=== PATIENT | female | born 1990 | race Caucasian/White ===

== ENCOUNTER 2016-12-09 06:36 | Emergency (ER) | payer BC ==
[2016-12-09 06:51] VITALS: O2SAT 96
[2016-12-09 07:37] LABS: ADD URINE CULTURE? YES (NO); Bacteria MODERATE /HPF (NEGATIVE); Bilirubin NEGATIVE (NEGATIVE); Blood 250 Ery/ul (0-5); COMPLETE URINE MICROSCOPIC? YES; Collection Type CCMS; Epithelial Cells MODERATE /HPF (FEW); Glucose NEGATIVE (NEGATIVE); Leukocyte Esterase NEGATIVE (NEGATIVE)
--- NOTE | 2016-12-09 07:44 | ERPHSYRPT ---
- History of Present Illness Time Seen by Provider: 12/09/16 07:00 Historian: patient Exam Limitations: no limitations Patient Subjective Stated Complaint: Pt sts intermittent left flank pain x 1 week. Sts a few days ago left flank hurt, sts last night right flank started hurting. Sts she feels like she has a kidney infection. Has been taking AZO for this. Pt sts painful urination. Denies urinary frequency. Sts intermittent urinary urgency. Triage Nursing Assessment: Pt alert, oriented, answers all questions appropriately. Skin p/w/d, resps non-labored. Pt ambulatory to tx room, steady gait noted. Timing/Duration: week(s) (1) Activities at Onset: none Quality: sharpness Abdominal Pain Onset Location: flank (oracio, but L>R) Pain Radiation: no radiation Severity of Pain-Max: moderate Severity of Pain-Current: moderate Modifying Factors: Improves With: urinating Associated Symptoms: denies symptoms Previous symptoms: same symptoms as today Allergies/Adverse Reactions: morphine Allergy (Intermediate, Verified 12/09/16 06:46) Vomiting Immunizations Up to Date: Yes - Review of Systems Constitutional: No Symptoms Eyes: No Symptoms Ears, Nose, & Throat: No Symptoms Respiratory: No Symptoms Cardiac: No Symptoms Abdominal/Gastrointestinal: No Symptoms Genitourinary Symptoms: Dysuria Musculoskeletal: No Symptoms Skin: No Symptoms Neurological: No Symptoms Psychological: No Symptoms Endocrine: No Symptoms Hematologic/Lymphatic: No Symptoms Immunological/Allergic: No Symptoms - Past Medical History Pertinent Past Medical History: No - Past Surgical History Past Surgical History: Yes Gastrointestinal: Appendectomy Female Surgical History: Section - Social History Smoking Status: Never smoker Exposure to second hand smoke: No Drug Use: none Patient Lives Alone: No - Female History Hx Last Menstrual Period: now - Nursing Vital Signs Nursing Vital Signs: Initial Vital Signs Temperature 98.0 F 12/09/16 06:46 Pulse Rate 76 12/09/16 06:46 Respiratory Rate 16 12/09/16 06:46 Blood Pressure 128/78 12/09/16 06:46 O2 Sat by Pulse Oximetry 96 12/09/16 06:46 Pain Scale Pain Intensity 8 - Physical Exam General Appearance: moderate distress Eye Exam: eyes nml inspection Ears, Nose, Throat Exam: normal ENT inspection, TMs normal, pharynx normal Neck Exam: normal inspection, non-tender, supple, full range of motion Respiratory Exam: normal breath sounds, lungs clear, airway intact Cardiovascular Exam: regular rate/rhythm, normal heart sounds, normal peripheral pulses Gastrointestinal/Abdomen Exam: soft, normal bowel sounds Extremity Exam: normal inspection, normal range of motion, pelvis stable Neurologic Exam: alert, oriented x 3, cooperative Skin Exam: normal color, warm, dry SpO2 Interpretation: normal SpO2: 96 Oxygen Delivery: Room Air - Course Nursing assessment & vital signs reviewed: Yes Ordered Tests: Active Orders 24 hr Category Date Time Status Clean Catch Urine Specimen STAT Care 12/09/16 07:04 Active CULTURE,URINE Stat Lab 12/09/16 07:15 Received UA W/ MICROSCOPIC Stat Lab 12/09/16 07:15 Completed Lab/Rad Data: Laboratory Results 12/09/16 Range/Units 07:15 Ur Collection Type CCMS Urine Color ORANGE (YELLOW) Urine Appearance SLIGHTLY CLOUDY (CLEAR) Urine pH 6.0 (5-6) Ur Specific [place] 1.020 (1.005-1.025) Urine Protein NEGATIVE (Negative) Urine Ketones NEGATIVE (NEGATIVE) Urine Blood 250 (0-5) Manjeet/ul Urine Nitrite NEGATIVE (NEGATIVE) Urine Bilirubin NEGATIVE (NEGATIVE) Urine Urobilinogen NORMAL (0-1) mg/dL Ur Leukocyte Esterase NEGATIVE (NEGATIVE) Urine Microscopic RBC 0-2 (0-2) /HPF Urine Microscopic WBC 10-15 (0-5) /HPF Ur Epithelial Cells MODERATE (FEW) /HPF Urine Bacteria MODERATE (NEGATIVE) /HPF Urine Glucose NEGATIVE (NEGATIVE) mg/dL Specimen Received 12-09-16 0737 - Progress Progress: improved Will see patient in: office (PCP 1 week) Counseled pt/family regarding: lab results, diagnosis, need for follow-up - Departure Time of Disposition: 07:45 Departure Disposition: Home Clinical Impression: UTI (urinary tract infection) Qualifiers: Urinary tract infection type: site unspecified Hematuria presence: with hematuria Qualified Code(s): N39.0 - Urinary tract infection, site not specified ; R31.9 - Hematuria, unspecified Condition: Stable Critical Care Time: No Referrals: STEPHANIE WRIGHT [Primary Care Provider] -
[2016-12-09] MEDS ORDERED: NORCO 5/325 MG PO ONE (07:56)
[2016-12-09] MEDS ORDERED: MOTRIN 400 MG PO ONE (07:58)
[2016-12-09] MEDS ORDERED: MOTRIN 400 MG ONE (07:59)
[2016-12-09 08:17] VITALS: BP 122/81; PULSE 75
== END 2016-12-09 08:16 | disposition home or self-care (01) ==
LOC: ED 06:36
DX: N39.0 Urinary tract infection, site not specified (principal); R31.9 Hematuria, unspecified
CPT/HCPCS: 36000; 81000; 87086; 99283; 99284; A9270-GY